=== PATIENT | female | born 1960 | race Caucasian/White ===

== ENCOUNTER 2019-02-06 22:17 | Emergency (ER) | payer OTHER ==
[~2019-02-06] VITALS: Ht 162.6 cm; Wt 99.8 kg
[~2019-02-06 22:17] MED LIST: ADIPEX-P37.5 M1 PO; AMITRIPTYLINE H10 M1 PO; AMITRIPTYLINE H25 M2 PO; ASPIRIN325 PO; ATIVAN1 MG PO; AZITHROMYCIN1 GM PO; BUSPIRONE HCL10 MG PO; CELEXA 10 MG TA10 M1 PO; COLACE100 MG PO; DOXYCYCLINE 10100 MG PO; DUONEB 2.5-0.5 M3 ML INH; ENOXAPARIN40 MG/0.1 SUBQ; ERYTHROMYCIN250 MG PO; ESTRACE0.5 MG; FIORICET 50-321 EACH PO; FLONASE 0.05%50 MCG NASAL; HYDROCHLOROTHIA25 M1 PO; HYDROCHLOROTHIA25 M2 PO; HYDROCODON-ACE1 EAC7 PO; HYDROCODONE-AP1 EAC6 PO; IBUPROFEN 800800 M1 PO; IMITREX 50 MG T50 MG PO; KEFLEX250 MG PO; KLOR-CON PO; LEVOTHROID75 MCG PO; LEVOTHYROXIN0.075 MG PO; LEVOXYL75 MCG PO; LEXAPRO20 MG PO; Lexapro PO; MAGNESIUM OXID200 MG PO; METAMUCIL PAC1 UDPKT PO; MILK OF MA2400 MG/10 PO; MOBIC7.5 M1 PO; MOBIC7.5 MG PO; NAPROSYN500 MG PO; OXYCODONE HCL 55 MG PO; PAXIL10 MG; POTASSIUM20 OR; PREDNISONE 20 M20 MG PO; PREMPRO 0.3 MG1 EACH; PRINIVIL20 MG PO; PROAIR HFA8.5 GM; PYRIDIUM200 MG PO; SYNTHROID100 MCG; TRAMADOL 50 MG50 MG PO; TRAZODONE HCL50 MG PO; TUSSIONEX PENN473 ML PO; VENLAFAXINE HCL75 M2 PO; WELLBUTRIN SR150 MG PO; XARELTO10 MG PO; ZOFRAN ODT4 MG PO
[2019-02-06] MEDS ORDERED: NABUMETONE 750750 M1 PO (22:34)
[2019-02-06] MEDS ORDERED: NYAMYC15 GM TOP (22:35)
[2019-02-06] MEDS ORDERED: CARAFATE 1 GM TA1 G1 PO (22:35)
[2019-02-06] MEDS ORDERED: LORAZEPAM 0.50.5 M1 PO (22:35)
[2019-02-06 22:44] LABS: ABSOLUTE BASOPHILS 0.1 thou/uL (0.0-0.2); ABSOLUTE EOSINOPHILS 0.3 thou/uL (0.0-0.7); ABSOLUTE LYMPHOCYTES 2.1 thou/uL (0.8-5.3); ABSOLUTE MONOCYTES 0.6 thou/uL (0.0-1.2); ABSOLUTE NEUTROPHILS 3.2 thou/uL (1.6-8.1); BASOPHILS 1.1 %; EOSINOPHILS 4.1 %; HEMATOCRIT 42.3 % (37.0-47.0); HEMOGLOBIN 14.5 gm/dL (12.0-15.0); LYMPHOCYTES 34.4 %; MCH 29.1 pg (26.0-34.0); MCHC 34.3 g/dL (28.0-37.0); MCV 84.7 fL (80.0-100.0); MPV 7.2 fl. (7.2-11.1); NUCLEATED RBCS 0 /100WBC; PLATELET COUNT* 268 thou/uL (150-400); POLYS 51.4 %; RBC 4.99 mil/uL (4.20-5.00); RDW-CV 14.4 % (10.5-14.5); WBC 6.2 thou/uL (4.0-11.0)
[2019-02-06 22:53] LABS: ANION GAP 12 mmol/L (7-16); BUN 18 mg/dL (7-18); CALCIUM 9.4 mg/dL (8.5-10.1); CHLORIDE 104 mmol/L (98-107); CO2 30 mmol/L (21-32); CREATININE 0.9 mg/dL (0.6-1.3); GLUCOSE 109 mg/dL (70-99); SODIUM 146 mmol/L (136-145)
[2019-02-06 22:56] LABS: PROTIME 10.1 Seconds (9.20-11.50)
[2019-02-06 22:57] LABS: POTASSIUM 2.8 mmol/L (3.5-5.1)
[2019-02-06 23:02] LABS: ALKALINE PHOSPHATASE 103 U/L (46-116); LIPASE 198 U/L (73-393); SGOT 24 U/L (15-37); SGPT 27 U/L (30-65); TOTAL BILIRUBIN 0.3 mg/dL (<0.1-1.0); TOTAL PROTEIN 7.2 g/dL (6.4-8.2); TROPONIN-I LEVEL <0.06 ng/mL (<0.06)
[2019-02-07 03:41] VITALS: BP 142/75
--- NOTE | 2019-02-08 16:57 | EKG ---
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 : 1960 Requested By: Mckenzie Mazariegos Order Number: [id number] MD: Emory Cabrera Measurements Intervals [place] Rate: 80 P: 51 WV: 176 QRS: -45 QRSD: 115 T: 119 QT: 422 QTc: 487 Interpretive Statements Sinus rhythm Ventricular premature complex LVH with IVCD, LAD and secondary repol abnrm Borderline prolonged QT interval Compared to ECG 06/26/2015 10:40:21 Ventricular premature complex(es) now present Intraventricular conduction delay now present Early repolarization now present Sinus bradycardia no longer present Electronically Signed On 02-08-2019 16:57:02 CDT by Emory Cabrera [email or web address] <ELECTRONICALLY SIGNED> By: Emory Cabrera MD, [facility] 02/08/19 1657 [id number] [id number] Emory Cabrera MD, [facility] /EPI
== END 2019-02-07 03:41 | disposition home or self-care (01) ==
LOC: M.ERS 22:17
PROVIDERS: Personal Emergency Response Attendant
DX: M79.603 Pain in arm, unspecified (principal); I10 Essential (primary) hypertension; G43.909 Migraine, unspecified, not intractable, without status migrainosus; F32.9 Major depressive disorder, single episode, unspecified; Z88.5 Allergy status to narcotic agent; Z88.1 Allergy status to other antibiotic agents; Z90.49 Acquired absence of other specified parts of digestive tract; Z90.710 Acquired absence of both cervix and uterus

== ENCOUNTER 2019-08-20 13:32 | Emergency (ER) | payer OTHER ==
[~2019-08-20] VITALS: Ht 162.6 cm; Wt 99.8 kg
[~2019-08-20 13:32] MED LIST changes: +CARAFATE 1 GM TA1 G1 PO; +LORAZEPAM 0.50.5 M1 PO; +NABUMETONE 750750 M1 PO; +NYAMYC15 GM TOP
[2019-08-20 14:28] LABS: URINE BILIRUBIN NEGATIVE (Negative); URINE BLOOD TRACE (Negative); URINE CLARITY CLEAR; URINE COLOR YELLOW; URINE GLUCOSE-RANDOM NEGATIVE (Negative); URINE KETONES NEGATIVE (Negative); URINE LEUKOCYTES-REFLEX TRACE (Negative); URINE NITRITE-REFLEX NEGATIVE (Negative); URINE PROTEIN NEGATIVE (Negative); URINE UROBILINOGEN 0.2 E.U./dl (0.2-1.0)
[2019-08-20 14:40] LABS: BACTERIA-REFLEX 1-9 Few /HPF (None Seen); CASTS None Seen /LPF (None Seen); CRYSTALS None Seen /LPF (None Seen); SQUAMOUS 0-3 Few /LPF (0-3); URINE RBC 0-2 Rare /HPF (0-2); URINE WBC-REFLEX 0-5 Rare /HPF (0-5)
[2019-08-20 15:07] LABS: ABSOLUTE BASOPHILS 0.1 thou/uL (0.0-0.2); ABSOLUTE EOSINOPHILS 0.2 thou/uL (0.0-0.7); ABSOLUTE LYMPHOCYTES 2.7 thou/uL (0.8-5.3); ABSOLUTE MONOCYTES 0.6 thou/uL (0.0-1.2); ABSOLUTE NEUTROPHILS 4.5 thou/uL (1.6-8.1); EOSINOPHILS 2.3 %; HEMOGLOBIN 13.9 gm/dL (12.0-15.0); LYMPHOCYTES 33.2 %; MCH 28.8 pg (26.0-34.0); MCHC 33.9 g/dL (28.0-37.0); MCV 84.9 fL (80.0-100.0); MONOCYTES 7.9 %; MPV 6.9 fl. (7.2-11.1); NUCLEATED RBCS 0 /100WBC; PLATELET COUNT* 278 thou/uL (150-400); POLYS 55.6 %; RBC 4.83 mil/uL (4.20-5.00); RDW-CV 14.1 % (10.5-14.5)
[2019-08-20 15:29] LABS: POTASSIUM 3.5 mmol/L (3.5-5.1)
[2019-08-20 15:33] LABS: ALBUMIN 3.7 g/dL (3.4-5.0); TOTAL BILIRUBIN 0.5 mg/dL (<0.1-1.0); TOTAL PROTEIN 6.9 g/dL (6.4-8.2)
--- NOTE | 2019-08-20 15:55 | EKG ---
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 08/20/19 1555 1435 1435 Steve Ruvalcaba MD, [facility] /EPI
[2019-08-20] MEDS ORDERED: PREDNISONE 10 M10 MG PO (16:02)
[2019-08-20] MEDS ORDERED: NORCO 5-325 TA1 EAC1 PO (16:02)
[2019-08-20] MEDS ORDERED: FLEXERIL PO (16:02)
[2019-08-20 16:17] VITALS: BP 132/70
== END 2019-08-20 16:21 | disposition home or self-care (01) ==
LOC: M.ERS 13:32
PROVIDERS: Nurse Practitioner Family
DX: M54.5 Low back pain (principal); R21 Rash and other nonspecific skin eruption; I10 Essential (primary) hypertension; G43.909 Migraine, unspecified, not intractable, without status migrainosus; F32.9 Major depressive disorder, single episode, unspecified; Z90.49 Acquired absence of other specified parts of digestive tract; Z90.89 Acquired absence of other organs; Z90.710 Acquired absence of both cervix and uterus; Z88.1 Allergy status to other antibiotic agents; Z88.5 Allergy status to narcotic agent

== ENCOUNTER → 2019-10-11 | Outpatient (CLI) | payer BC ==
[~2019-10-11] MED LIST changes: +FLEXERIL PO; +NORCO 5-325 TA1 EAC1 PO; +PREDNISONE 10 M10 MG PO
== END ==
LOC: M.MRI 16:54
DX: M47.26 Other spondylosis with radiculopathy, lumbar region (principal); M40.46 Postural lordosis, lumbar region; M51.26 Other intervertebral disc displacement, lumbar region; M12.88 Other specific arthropathies, not elsewhere classified, other specified site; M25.78 Osteophyte, vertebrae

== ENCOUNTER → 2019-10-26 | Outpatient (CLI) | payer BC ==
[~2019-10-26] MED LIST changes: +DESYREL150 MG PO; +ESCITALOPRAM OX20 MG PO
--- NOTE | 2019-10-29 09:07 | PAINCON ---
[place] [address] PAIN MANAGEMENT CONSULTATION Name: BERMUDEZLEIGH [id number] Admission: 10/26/19 Attend Phys: Hortencia Rutledge MD Discharge: Date of : 64 Report #: [id number] THIS REPORT FOR: //name// cc: Tamar Birmingham Samantha RNP ~ THIS REPORT FOR: //name// CC: Hortencia Birmingham DATE OF SERVICE: 10/26/2019 CHIEF COMPLAINT: Low back pain and mid back pain. HISTORY: The patient is a 59-year-old female who has been referred to the pain clinic for evaluation of back pain. The patient had a history in the past of lumbar radicular pain in 2014. At that point, she underwent a series of epidural steroid injections and seems to gleaned benefits from that. It was noted in 2012 that she had some evidence of spinal stenosis, which were described as moderate to severe in the foraminal areas at L4-L5. She recently underwent another MRI. She was told that again she has some narrowing of the spine in the lower back area. Denies any bowel or bladder dysfunction. Notes that a significant amount of her pain is in the lumbar area over her hips and the back and has noted pain that radiates down the posterior portion of her back and down into her legs. She has noted some in the L4-L5 dermatomal distribution as well as on the L5-S1 distribution. She has been using tramadol. She found that this medication was somewhat helpful. Did receive a few hydrocodone tablets from the Emergency Room. She is out of that medication. Continues to use a nonsteroidal medication Relafen. Over the last 3 months, she has noted a worsening of the pain. She also notes some pain and discomfort in her hands. Denies any trauma. Denies any bowel or bladder dysfunction. ALLERGIES: CODEINE, ERYTHROMYCIN. CURRENT MEDICATIONS: Nabumetone 750 mg b.i.d., Flexeril 10 mg, hydrocodone 5/325 briefly from the Emergency Room, tramadol 50 mg p.r.n., Wellbutrin-SR 150 mg, buspirone 10 mg t.i.d., Synthroid 0.075 mg, hydrochlorothiazide, Lexapro 30 mg, lorazepam 5 mg q. 6 hours p.r.n. anxiety. PAST MEDICAL HISTORY: Anemia, hypertension, gallbladder disease, thyroid disease, emotional problems, joint disease/arthritis. PAST SURGICAL HISTORY: 1. Hysterectomy in 1986. 2. Cholecystectomy, 1991. 3. Thyroid surgery, 2001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 REVIEW OF SYSTEMS: Generally good health, weight changes, fever/night sweats, headaches, fatigue, eye disease, wears glasses, hearing loss/ringing in the ears, ear drainage/earaches, chronic sinus problems, swollen glands in neck, painful bowel movements/constipation, awakens at night to urinate. Joint disease/joint pain, joint stiffness and swelling, weakness of muscles and joints, muscle cramps, back pain, varicose veins, nervousness, depression, insomnia, easy bruising, anemia. LABORATORY DATA: 1. MRI of the lumbar spine dated 10/11/2019. At L2-L3, there is a broad-based posterior disk bulge. There is mild effacement of the ventral thecal sac. There is [id number] bilateral facet arthrosis. No significant central spinal stenosis or foraminal stenosis. 2. L3-L4, there is a broad-based posterior disk bulge with effacement and endplate osteophyte ridging. There is mild thecal sac stenosis. No significant central spinal stenosis. There is endplate osteophyte ridging and foraminal disk bulging. 3. At L4-L5, there is a broad-based posterior disk bulge. There is severe bilateral facet arthrosis. There is no significant central canal stenosis. There is endplate osteophyte ridging with facet spurring and foraminal disk bulging resulting in severe bilateral neural foraminal stenosis. 4. At L5-S1, there is a broad-based posterior disk bulge. There is a superimposed shallow broad-based left paracentral disk protrusion. There is foraminal disk bulging with facet spurring and endplate osteophyte ridging resulting in severe right neural foraminal stenosis. There is moderate medial left foraminal stenosis. IMPRESSION: Extensive multilevel lumbar spondylosis. Severe bilateral neural foraminal stenosis at L4-L5 and severe right-sided neural foraminal stenosis at L5-S1 due to disk bulging. Endplate osteophyte ridging and facet spurring. PAIN CLINIC ASSESSMENT AND PQRS: 1. The patient has some osteoarthritic changes and spondylosis in her low back area. She is not being treated for rheumatoid arthritis. 2. Height 5 feet 4 inches, weight 224 pounds, BMI is 38.4. 3. Vital signs: Blood pressure 152/106, heart rate 79, respiratory rate 16, room air saturation 96%, and temperature 97.8. 4. Pain intensity 5/10. 5. Fall history: The patient has not fallen in the last 3 months. 6. Blood thinner. The patient is not on a blood thinning medication. 7. Hypertension. The patient is not being treated for hypertension, uses hydrochlorothiazide for water fluid retention. 8. Opioids greater than 6 weeks. The patient is not on [place] [address] PAIN MANAGEMENT CONSULTATION Name: BERMUDEZLEIGH [facility]#: [id number] Admission: 10/26/19 Attend Phys: Hortencia Rutledge MD Discharge: Date of : 64 Report #: [id number] medications. 9. Risk assessment tool, low for opioid use. 10. Functional assessment tool . 11. Recreational drug use: The patient denies. 12. Tobacco: The patient denies. 13. Alcohol: The patient denies use of alcoholic beverages. PHYSICAL EXAMINATION: GENERAL: The patient is a well-developed, well-nourished, somewhat obese white female. Appears her stated age. She is alert and oriented x 3. Her affect is appropriate. Speech is fluent. HEENT: Normocephalic, atraumatic. Extraocular eye muscles intact. Sclerae nonicteric. Mucous membranes are moist. Hearing is within normal limits. NECK: Without adenopathy or JVD. She has a well-healed scar on the anterior portion of her neck near the thyroid. HEART: Regular rate. LUNGS: Clear to auscultation. ABDOMEN: Nontender. EXTREMITIES: Upper extremity muscle strength judged to be 5/5 for the major muscle groups in the upper extremity. Deep tendon reflexes are trace at the biceps bilaterally. MUSCULOSKELETAL: Lower extremity muscle strength judged to be 5/5 for the major muscle groups in the lower extremity. The patient complains of pain and discomfort, particularly while standing. While standing, notes increased low back pain. Complains of some pain at approximately T7-T8 in the midline area. States that there is an area in this vicinity that is "sore." States that she has been told that it is out of place by her chiropractor. Forward bending to about 70 degrees cause some increased low back discomfort. Standing on her toes cause some increased pain and discomfort in the posterior portion of her leg. Heel standing was not problematic. Left and right lateral bending were not very problematic. Left and right lateral rotation were not very problematic. Anterior and posterior spring tests were negative. The Brayan's sign was negative. Midline palpation at about T7-8 notes some soreness in this area. The patient complains of pain across the lower portion of her back in the L4-L5 dermatomal distribution. Also, complains of some pain in the right lateral portion of her leg and has progressed down in her leg with sensory changes in the past. IMPRESSION: Lumbar radiculopathy with spinal stenosis at L4-L5 and L5-S1. RECOMMENDATIONS: We discussed treatment options with the patient. In the past, she has had epidural steroid injection and they have been beneficial. At this point, she is having more pain, which is more consistent with spinal stenosis. Prolonged standing causes worsening of pain. The patient then can experience pain, which radiates down the lower portion of her back and down into her legs with numbness and tingling. The patient will return to the Pain Clinic after [address] [address] PAIN MANAGEMENT CONSULTATION Name: LEIGH BERMUDEZ [facility] [id number] Admission: 10/26/19 Attend Phys: Hortencia Rutledge MD Discharge: Date of : 64 Report #: [id number] she has been provided certification from her insurance carrier [employer]. At that time, she will then undergo an epidural steroid injection to help with the lumbar radicular component of pain and discomfort that she is having associated with her spinal stenosis in the lumbar areas. <ELECTRONICALLY SIGNED> By: Hortencia Rutledge MD 10/29/19 0907 1450 [id number]. Kamran Rutledge MD /[facility]
== END ==
LOC: M.PC 10:30
DX: M48.061 Spinal stenosis, lumbar region without neurogenic claudication (principal); M54.16 Radiculopathy, lumbar region

== ENCOUNTER → 2019-11-02 | Outpatient (CLI) | payer BC | END | disposition home or self-care (01) | LOC: M.PC 08:02 | DX: M54.16 Radiculopathy, lumbar region (principal); F41.9 Anxiety disorder, unspecified; Z98.890 Other specified postprocedural states; Z79.899 Other long term (current) drug therapy; Z88.8 Allergy status to other drugs, medicaments and biological substances ==

== ENCOUNTER → 2019-12-07 | Outpatient (CLI) | payer BC ==
--- NOTE | 2019-12-08 08:25 | PAINCON ---
[address] [address] PAIN MANAGEMENT CONSULTATION Name: BERMUDEZGONZALESROBERT Ruiz [facility] [id number] Admission: 12/07/19 Attend Phys: Hortencia Rutledge MD Discharge: Date of : 64 Report #: [id number] THIS REPORT FOR: //name// cc: Tamar Birmingham Samantha RNP ~ THIS REPORT FOR: //name// CC: Hortencia Birmingham DATE OF SERVICE: 12/07/2019 CHIEF COMPLAINT: Low back pain down into the legs. Pain is about 50% better since the last injection, I would like to proceed with another. HISTORY: The patient is a 59-year-old female who has been seen in the pain clinic because of lumbar radiculopathy. She underwent an epidural steroid injection in October. She has noticed some improvement in her pain. She rates her pain as a 4-5/10. She feels overall that things are about 50% better as compared to the previous injection. She had no complications. She is having less pain and discomfort down into her leg. She feels that the ibuprofen seems to be helping. She has been taking this medication p.r.n. She also has been using tramadol as needed. She has returned today with the hopes of undergoing another epidural steroid injection to improve upon the pain relief she has received earlier. ALLERGIES: CODEINE, ERYTHROMYCIN. CURRENT MEDICATIONS: Nabumetone 750 mg b.i.d., Flexeril 10 mg, hydrocodone 5/325, tramadol 50 mg, Wellbutrin-SR 150 mg, buspirone 10 mg t.i.d., Synthroid 0.075 mg, hydrochlorothiazide, Lexapro 30 mg, lorazepam q. 6 hours p.r.n. anxiety. PAIN CLINIC ASSESSMENT AND PQRS: 1. The patient has some osteoarthritic changes and spondylolisthesis in her lower back. She is not being treated for rheumatoid arthritis. 2. Height 5 feet 4 inches, weight 229 pounds, BMI is 39.1. 3. Vital Signs: Blood pressure 150/105, heart rate 72, respiratory rate 16, room air saturation 96%, temperature 98.5. 4. Pain intensity 4-5/10. 5. Fall history: The patient has not fallen in the last 3 months. 6. Blood thinner. The patient is not on a blood thinning medication. 7. Hypertension. The patient is not being treated for hypertension. She does use hydrochlorothiazide for water retention. 8. Opioids greater than 6 weeks. The patient is not receiving [place] [address] PAIN MANAGEMENT CONSULTATION Name: LEIGH BERMUDEZ Room: [facility]#: [id number] Admission: 12/07/19 Attend Phys: Hortencia Rutledge MD Discharge: Date of : 64 Report #: [id number] 9. Functional assessment tool . 10. Recreational drug use: The patient denies. 11. Tobacco: The patient denies. 12. Alcohol. The patient denies use of alcoholic beverages on a regular basis. PHYSICAL EXAMINATION: GENERAL: The patient is a well-developed, well-nourished white female. Appears her stated age. She is somewhat obese. She is alert and oriented x 3. Her affect is appropriate. Speech is fluent. HEENT: Normocephalic, atraumatic. Extraocular eye muscles intact. Sclerae nonicteric. Mucous membranes are moist. NECK: Without adenopathy or JVD. The patient has a well-healed scar in the anterior portion of her neck near her thyroid. HEART: Regular rate. LUNGS: Clear to auscultation. ABDOMEN: Nontender. EXTREMITIES: Upper extremity muscle strength judged to be 5-/5 for the major muscle groups in the upper extremity. Deep tendon reflexes are trace at the biceps. MUSCULOSKELETAL: Lower extremity muscle strength judged to be 5/5 for the major muscle groups in the lower extremity. The patient has pain and discomfort in the L4-L5 dermatomal distribution and radiating down into her legs. IMPRESSION: Lumbar radiculopathy with spinal stenosis at L4-L5 and at L5-S1. RECOMMENDATIONS: We discussed treatment options with the patient. Risks and benefits of an epidural steroid injection were discussed. The patient gleaned greater than 50% improvement in her pain after the last injection. We will proceed with another epidural steroid injection at the L4-L5 dermatomal distribution today. PROCEDURE NOTE: The patient was taken to the procedure area. She was then assisted in getting on examination table. Her back was sterilely prepped with a Betadine solution. Fluoroscopy was used anterior, posterior and lateral for viewing. After back had been sterilely prepped with a Betadine solution and allowed to dry. At the L4-L5 area, 0.25% bupivacaine was infiltrated using a 25-gauge needle. After the area had been anesthetized, a 17-gauge Tuohy with loss of resistance technique was used to gain access to the epidural space using a loss of resistance technique at the L4-L5 area. A 0.25% bupivacaine was then infiltrated again to anesthetize the area more. A total of 80 mg Depo-Medrol, 40 mg triamcinolone and 2 mL of 0.25% bupivacaine was injected. The patient tolerated the procedure well. Her pain decreased to 0 [place] [address] PAIN MANAGEMENT CONSULTATION Name: LARAGONZALESROBERT Ruiz Room: [facility]#: [id number] Admission: 12/07/19 Attend Phys: Hortencia Rutledge MD Discharge: Date of : 64 Report #: [id number] We would like to thank you for letting us participate in her care. We hope she continues to improve. <ELECTRONICALLY SIGNED> By: Hortencia Rutledge MD 12/08/19 0825 1642 1759Hortencia Rutledge MD /PMT
== END ==
LOC: M.PC 04:38
DX: Z12.31 Encounter for screening mammogram for malignant neoplasm of breast (principal)

== ENCOUNTER → 2020-01-20 | Outpatient (CLI) | payer BC ==
--- NOTE | 2020-02-02 15:51 | PAINCON ---
[address] [address] PAIN MANAGEMENT CONSULTATION Name: LARALEIGH Joseph Room: [facility]#: [id number] Admission: 01/20/20 Attend Phys: Hortencia Rutledge MD Discharge: Date of : 64 Report #: [id number] THIS REPORT FOR: //name// cc: Tamar Birmingham Samantha RNP ~ THIS REPORT FOR: //name// CC: Hortencia Birmingham DATE OF SERVICE: 02/01/2020 CHIEF COMPLAINT: Pain in the low back area. HISTORY: The patient is a 59-year-old female who has been seen in the pain clinic because of cervical radiculopathy. She has undergone epidural steroid injections. These have been helpful. She rates her pain as 0/10 today. She feels it is about 90%-95% improved. She notes that when she is lifting her dog the pain starts. She has used ice packs, that has been helpful. At this point, she would like to continue on a conservative approach. She would like to consider an injection in the future. She would like to save it until her pain is more problematic. She has noticed pain while lifting her dog. ALLERGIES: CODEINE AND ERYTHROMYCIN. CURRENT MEDICATIONS: Nabumetone 750 mg b.i.d., Flexeril 10 mg, hydrocodone 5/325, tramadol 50 mg, Wellbutrin-SR 150 mg, buspirone 10 mg t.i.d., Synthroid 0.75 mg, hydrochlorothiazide, Lexapro 30 mg, lorazepam q. 6 hours p.r.n. anxiety. PAIN CLINIC ASSESSMENT AND PQRS: 1. The patient has some osteoarthritic changes and spondylolisthesis in her low back. She is not being treated for rheumatoid arthritis. 2. Height 5 feet 4 inches, weight 235 pounds, BMI is 40. 3. Vital Signs: Blood pressure 153/92, heart rate 79, respiratory rate 18, room air saturation is 97%, temperature is 98.1. 4. Pain intensity 0/10. 5. Fall history: The patient has not fallen in the last 3 months. 6. Blood thinner. The patient is not on a blood thinning medication. 7. Hypertension. The patient is not being treated for hypertension. Does use, hydrochlorothiazide for water retention. 8. Opioids greater than 6 weeks. The patient receives medications. The patient is not receiving opioids on a regular basis. 9. Functional assessment tool . 10. Recreational drugs. The patient denies. 11. Tobacco: [place] [address] PAIN MANAGEMENT CONSULTATION Name: LEIGH BERMDUEZ Room: [facility]#: [id number] Admission: 01/20/20 Attend Phys: Hortencia Rutledge MD Discharge: Date of : 64 Report #: [id number] 12. Alcohol. The patient denies use of alcoholic beverages. PHYSICAL EXAMINATION: GENERAL: The patient is a well-developed, well-nourished white female. She appears her stated age. She is alert and oriented x 3. She is somewhat obese. HEENT: Normocephalic, atraumatic. Extraocular eye muscles intact. Mucous membranes are moist. NECK: Without adenopathy or JVD. The patient has a well-healed scar in the anterior portion of her neck near thyroid. HEART: Regular rate. LUNGS: Clear to auscultation. ABDOMEN: Nontender. EXTREMITIES: Upper extremity muscle strength judged to be 5-/5 for the major muscle groups in the upper extremity. Deep tendon reflexes are trace in the biceps. MUSCULOSKELETAL: Lower extremity muscle strength judged to be 5/5 for the major muscle groups in the lower extremity. The patient has some pain and discomfort in the legs with some swelling. IMPRESSION: Lumbar radicular pain with spinal stenosis at L4-L5 and L5-S1. RECOMMENDATIONS: We discussed treatment options with the patient. At this juncture, she has been doing relatively well. She will consider another injection in the future. She will continue with the nabumetone. She will monitor her stomach. Should she note some worsening of pain in the stomach. She will stop taking the nabumetone. She will also monitor the nabumetone. We explained that sometimes nonsteroidal anti-inflammatory may cause swelling in the lower extremities. We would like to thank you for letting us participate in her care. We are glad that she noted a benefit from her past injection. <ELECTRONICALLY SIGNED> By: Hortencia Rutledge MD 02/02/20 1551 1232 [id number]. Kamran Rutledge MD /[facility]
== END ==
LOC: M.PC 04:09
DX: M54.16 Radiculopathy, lumbar region (principal); M48.07 Spinal stenosis, lumbosacral region; F11.20 Opioid dependence, uncomplicated; Z88.5 Allergy status to narcotic agent; Z88.8 Allergy status to other drugs, medicaments and biological substances; Z79.899 Other long term (current) drug therapy

== ENCOUNTER → 2020-03-28 | Outpatient (CLI) | payer BC ==
--- NOTE | 2020-04-11 14:07 | PAINCON ---
[address] [address] PAIN MANAGEMENT CONSULTATION Name: LEIGH BERMUDEZ Joseph Room: [facility]#: [id number] Admission: 03/28/20 Attend Phys: Hortencia Rutledge MD Discharge: Date of : 64 Report #: [id number] THIS REPORT FOR: //name// cc: Tamar Birmingham Samantha RNP ~ THIS REPORT FOR: //name// CC: Hortencia Birmingham DATE OF SERVICE: 03/28/2020 CHIEF COMPLAINT: Low back pain with pain radiating down the right hip, which started a couple of weeks ago. HISTORY: The patient is a 59-year-old female who has been seen in the pain clinic because of history of lumbar radiculopathy. She has undergone epidural steroid injections in the past. She has returned today because of the increasing intensity of pain. She rates it as a 7/10. It radiates down in her lower back, right hip and down into her right leg. She feels that an epidural injection would be helpful. As you may remember, she hurt her back while lifting her dog. ALLERGIES: CODEINE, ERYTHROMYCIN. CURRENT MEDICATIONS: Nabumetone 750 mg b.i.d., Flexeril 10 mg, hydrocodone 5/325, tramadol 50 mg, Wellbutrin-SR 150 mg, BuSpar 10 mg t.i.d., Synthroid 0.75 mg, hydrochlorothiazide, Lexapro 30 mg, lorazepam q.6 hours p.r.n. anxiety. PAIN CLINIC ASSESSMENT AND PQRS: 1. The patient has some osteoarthritic changes and spondylolisthesis in her low back. She is not being treated for rheumatoid arthritis. 2. Height 5 feet 4 inches, weight 228 pounds, BMI is 39. 3. Vital Signs: Blood pressure 128/54, heart rate 66, respiratory rate 16, room air saturation 94%, temperature 98.3. 4. Pain intensity, 03/17. 5. Fall history. The patient has not fallen in the last 3 months. 6. Blood thinner. The patient is not on a blood thinning medication. 7. Hypertension. The patient is not being treated for hypertension, but does use hydrochlorothiazide for water retention. 8. Opioids greater than 6 weeks. The patient receives pain medications on a regular basis. 9. Functional assessment tool, . 10. Recreational drug use. The patient denies. 11. Tobacco. The patient denies. 12. Alcohol. The patient denies [place] [address] PAIN MANAGEMENT CONSULTATION Name: LEIGH BERMUDEZ Room: [facility]#: [id number] Admission: 03/28/20 Attend Phys: Hortencia Rutledge MD Discharge: Date of : 64 Report #: [id number] PHYSICAL EXAMINATION: GENERAL: The patient is a well-developed, well-nourished, white female. Appears her stated age. She is alert and oriented x 3. Her affect is appropriate. Speech is fluent. HEENT: Normocephalic, atraumatic. Extraocular eye muscles intact. Mucous membranes are moist. NECK: Without adenopathy or JVD. The patient is wearing a mask. She has a well-healed scar in the anterior portion of her neck near the thyroid. HEART: Rate regular. LUNGS: Clear to auscultation. ABDOMEN: Nontender. EXTREMITIES: Upper extremity muscle strength judged to be 5-/5 for the major muscle groups in the upper extremity. Deep tendon reflexes are trace at the biceps. MUSCULOSKELETAL: Lower extremity judged to be 5-/5 for the major muscle groups in the lower extremity. The patient has some pain and discomfort in her legs and has pain that is radiating down and causing pain in the L5-S1 dermatomal distribution as well as the L4-L5 dermatomal distribution. We will proceed with an epidural steroid injection at the L4-L5 area because this is most problematic. IMPRESSION: Lumbar radiculopathy/spinal stenosis. RECOMMENDATIONS: We discussed treatment options with the patient. Risks and benefits of an epidural steroid injection were discussed. Possible complications of the procedure, which could include but are not limited to infection, worsening of pain, no improvement in pain, nerve damage, bleeding, spinal headache and the patient elects to proceed. We reminded the patient that steroid medications can decrease one's immune response. Should she become infected by the COVID-19 virus, she may have a more difficult time. The patient elects to proceed. PROCEDURE NOTE: The patient was taken to the procedure area. She was then assisted in getting on the examination table. Her back was sterilely prepped with a Betadine solution. A 0.25% bupivacaine was infiltrated. A 17-gauge Tuohy with loss of resistance technique was used to gain access to the epidural space. There was no CSF, heme or paresthesia. Total of 80 mg Depo-Medrol, 40 mg triamcinolone and 2 mL of 0.25% bupivacaine was injected. The patient tolerated the procedure well. There were no complications. She remained in the pain clinic. She will follow up in the future as needed. [address] [place] [address] PAIN MANAGEMENT CONSULTATION Name: LEIGH BERMUDEZ Room: [facility]#: [id number] Admission: 03/28/20 Attend Phys: Hortencia Rutledge MD Discharge: Date of : 64 Report #: [id number] We would like to thank you for letting us participate in her care. We hope she continues to improve. <ELECTRONICALLY SIGNED> By: Hortencia Rutledge MD 04/11/20 [id number]. Kamran Rutledge MD /PMT
== END | disposition home or self-care (01) ==
LOC: M.PC 04:03
PROVIDERS: ATTEND Anesthesiology Pain Medicine
DX: M54.16 Radiculopathy, lumbar region (principal); M48.061 Spinal stenosis, lumbar region without neurogenic claudication; G89.29 Other chronic pain; F41.9 Anxiety disorder, unspecified; Z98.890 Other specified postprocedural states; Z79.899 Other long term (current) drug therapy; Z79.891 Long term (current) use of opiate analgesic; Z88.8 Allergy status to other drugs, medicaments and biological substances

== ENCOUNTER → 2020-08-10 | Outpatient (CLI) | payer BC | END | disposition home or self-care (01) | LOC: M.PC 11:44 | PROVIDERS: ATTEND Anesthesiology Pain Medicine | DX: M54.16 Radiculopathy, lumbar region (principal); G89.29 Other chronic pain; I10 Essential (primary) hypertension; F32.9 Major depressive disorder, single episode, unspecified; G43.909 Migraine, unspecified, not intractable, without status migrainosus; Z98.890 Other specified postprocedural states; Z79.899 Other long term (current) drug therapy; Z90.710 Acquired absence of both cervix and uterus; Z90.49 Acquired absence of other specified parts of digestive tract; Z88.8 Allergy status to other drugs, medicaments and biological substances ==

== ENCOUNTER → 2020-11-28 | Outpatient (CLI) | payer BC | LOC: M.RAD 10:48 | PROVIDERS: ATTEND Nurse Practitioner Family | DX: Z12.31 Encounter for screening mammogram for malignant neoplasm of breast (principal) ==

== ENCOUNTER → 2020-12-26 | Outpatient (CLI) | payer BC | END | disposition home or self-care (01) | LOC: M.PC 10:55 | PROVIDERS: ATTEND Anesthesiology Pain Medicine | DX: M51.37 Other intervertebral disc degeneration, lumbosacral region (principal); M47.896 Other spondylosis, lumbar region; M48.061 Spinal stenosis, lumbar region without neurogenic claudication; M25.78 Osteophyte, vertebrae; G89.29 Other chronic pain; I10 Essential (primary) hypertension; F32.9 Major depressive disorder, single episode, unspecified; G43.909 Migraine, unspecified, not intractable, without status migrainosus; Z90.49 Acquired absence of other specified parts of digestive tract; Z90.710 Acquired absence of both cervix and uterus; Z96.651 Presence of right artificial knee joint; Z98.890 Other specified postprocedural states; Z79.899 Other long term (current) drug therapy; Z88.8 Allergy status to other drugs, medicaments and biological substances ==

== ENCOUNTER → 2021-03-28 | Outpatient (CLI) | payer BC | LOC: M.MRI 07:14 | PROVIDERS: ATTEND Family Medicine | DX: M43.02 Spondylolysis, cervical region (principal); M48.02 Spinal stenosis, cervical region; M25.78 Osteophyte, vertebrae; M47.812 Spondylosis without myelopathy or radiculopathy, cervical region ==